=== PATIENT | male | born 2000 | race Caucasian/White ===

== ENCOUNTER 2019-12-23 12:17 | Emergency (ER) | payer OTHER, SELFPAY ==
[~2019-12-23] VITALS: Ht 167.6 cm; Wt 122.5 kg
[2019-12-23 12:35] VITALS: BP 147/93
--- NOTE | 2019-12-23 12:40 | NUR ---
19/M c/o cough x 1wk and SOB x 3 days Denies fever, dizziness, weakness, travel, positive covid contacts. Nausea in the morning today but none at this time. No vomiting. 5/10 pleuritic chest pain Mother has cold symptoms . Pt appears NAD, VSS. Hx- DM2
--- NOTE | 2019-12-23 13:00 | NUR ---
COVID SWAB SAMPLE OBTAINED FROM PT
[2019-12-23 13:03] VITALS: BP 147/93
--- NOTE | 2019-12-23 13:03 | NUR ---
Patient discharged with v/s stable. Written and verbal after care instructions given and explained. Patient alert, oriented and verbalized understanding of instructions. Ambulatory with steady gait. All questions addressed prior to discharge. ID band removed. Patient advised to follow up with PMD. Rx of Tessalon perles, imodium, and ibuprofen given. Patient educated on indication of medication including possible reaction and side effects. Opportunity to ask questions provided and answered.
--- NOTE | 2019-12-23 13:10 | NUR ---
FABIOLA SWAB HANDED TO [employer]OD [employer] WORKER ANAYA
--- NOTE | 2019-12-26 16:43 | NUR ---
Positive Covid results received from lab-copy sent to Umair Davila and Radha
== END 2019-12-23 13:03 | disposition home or self-care (01) ==
LOC: EEVIPCON 12:17 → MED 12:17
DX: U07.1 COVID-19 (principal); R05 Cough; E11.9 Type 2 diabetes mellitus without complications; J45.909 Unspecified asthma, uncomplicated; R06.02 Shortness of breath; R19.7 Diarrhea, unspecified
CPT/HCPCS: 99283; U0003